=== PATIENT | male | born 1970 ===

== ENCOUNTER 2024-10-22 05:08 | Day surgery (SDC) | payer OTHER ==
[2024-10-19 13:52] VITALS: BP 130/86
[~2024-10-22] VITALS: Ht 177.8 cm; Wt 99.8 kg
[~2024-10-22 05:08] MED LIST: ACTOS15 MG PO; CATAPRES0.3 MG PO; COZAAR100 MG PO; FENOFIBRATE67 MG PO; HYDROCHLOROTH12.5 M2 PO; JARDIANCE25 MG PO; METFORMIN HCL1000 M2 PO; SIMVASTATIN40 MG PO; TOPROL XL50 M1 PO
[2024-10-22] MEDS ORDERED: BUPIVACAINE HCL 0.5% 50ML VIAL ONE (06:59)
[2024-10-22] MEDS ORDERED: CEFAZOLIN SODIUM 1,000 MG VIAL ONE (07:07)
[2024-10-22] MEDS ORDERED: ISOPROPYL ALCOHOL 30 ML OUNCE TOP ONE (08:00)
[2024-10-22] MEDS ORDERED: SUGAMMADEX SODIUM 200 MG/2 ML VIAL IV ONE (09:09)
[2024-10-22] MEDS ORDERED: MORPHINE SULFATE 4 MG/ML VIAL IV ONE (10:20)
== END 2024-10-22 11:30 | disposition home or self-care (01) ==
LOC: CIR.AMB 05:08
PROVIDERS: ATTEND Orthopaedic Surgery
DX: M75.112 Incomplete rotator cuff tear or rupture of left shoulder, not specified as traumatic (principal); M24.112 Other articular cartilage disorders, left shoulder; M75.22 Bicipital tendinitis, left shoulder; M75.02 Adhesive capsulitis of left shoulder; I10 Essential (primary) hypertension; E11.9 Type 2 diabetes mellitus without complications; E78.5 Hyperlipidemia, unspecified